=== PATIENT | male | born 1940 ===

== ENCOUNTER 2025-02-22 07:47 | Outpatient (CLI) | payer MEDICARE, SELFPAY ==
--- OUTSIDE RECORDS SUMMARY | 2025-02-22 07:51 | XMS_ITS | Clinical Summary ---
Author Organization [facility] Address [address] [place] [address] Care Team Providers Care Powder Guard Name Role Phone Ilan Duckworth MD Primary Care Provider [phone] Source Comments [facility],non-owned Affiliates and Associated Physician Practices is amultiple site organization consisting of ambulatory clinics and hospital sitesin [place], [place], [place] and [place]. This disclosure is being madepursuant to the Care Everywhere program and may not contain all information available regarding this patient. Last updated 18.[facility] [employer] Allergies Active Allergy Reactions Criticality Noted Date Comments Penicillins Rash Low 08/24/2015 Medications * Be aware that medications may not be up to date on this document. Alwaysverify current medications with the patient. losartan (COZAAR) 50 MG tablet Take 50 mg by mouth once daily Active triamterene-hydr ochlorothiazide (MAXZIDE) 75-50 MG tablet Take 1 Tab by mouth once daily Active aspirin EC (ECOTRIN) 325 MG tablet Take 325 mg by mouth once daily Active amLODIPine (NORVASC) 10 MG tablet Take 10 mg by mouth once daily Active testosterone cypionate (DEPO-TESTOTERON E) 200 MG/ML injection Inject 50 mg into muscle every 28 days Active Family History Medical History Relation Name Comments CAD (Coronary Artery Disease) Father Stroke Mother Relation Name Status Comments Father Mother Social History Tobacco Use Types Packs/Day Years Used Date Smoking Tobacco: Never Smokeless Tobacco: Never Tobacco Cessation:Counseling Given: No Alcohol Use Standard Drinks/Week Comments Yes 1.7 (1 standard drink = 0.6 oz p ure alcohol) non alcohol beverage Sex and Gender Information Value Date Recorded Sex Assigned at Not on file Legal Sex Male 12:32 PM LINOLEUM INSTALLER Gender Identity Not on file Sexual Orientation Not on file Last Filed Vital Signs Vital Sign Reading Time Taken Comments Blood Pressure 116/77 08/25/2015 10:30 AM LINOLEUM INSTALLER Pulse 81 08/25/2015 10:30 AM LINOLEUM INSTALLER Temperature 36.9 C (98.4 F) 08/25/2015 7:24 AM LINOLEUM INSTALLER Respiratory Rate 22 08/25/2015 8:38 AM LINOLEUM INSTALLER Oxygen Saturation 95% 08/25/2015 10:30 AM LINOLEUM INSTALLER Inhaled Oxygen Concentration - - Weight 95.9 kg (211 lb 6.7 oz) 08/25/2015 6:22 A M LINOLEUM INSTALLER Height 185.4 cm (6' 0.99 ) 08/24/2015 5:50 PM CS T Body Mass Index 27.9 08/24/2015 5:50 PM LINOLEUM INSTALLER Plan of Treatment Health Maintenance Due Date Last Done Comments DTAP/TDAP/TD VACCINES (1 - Tdap) 1961 PNEUMOCOCCAL VACCINE 50+ (1 of 1 - PCV) 1992 ZOSTER VACCINE (1 of 2) 1992 Respiratory Syncytial Virus (RSV) Vaccine Pt: or over 60 yrs (1 - 1-dose 75+ series) 2017 COVID-19 VACCINE ( - 2023-2 5 season) 2024 DEPRESSION SCREENING 10/20/2024 INFLUENZA VACCINE (Season Ended) 2025 HEPATITIS B VACCINE Aged Out No longe r eligible based on patient's age to complete this topic HIB VACCINE Aged Out No longer eligi ble based on patient's age to complete this topic HPV VACCINE Aged Out No longer eligi ble based on patient's age to complete this topic MENINGOCOCCAL (Group B) VACC INE SHARED DECISION-MAKING Aged Out No longer eligibl e based on patient's age to complete this topic MENINGOCOCCAL GROUPS A/C/Y/W VACCINE Aged Out No longer eligible b ased on patient's age to complete this topic Insurance MEDICARE [facility] Address: [address] [address] [place] [address] Advance Directives * Full Code (Latest Code Status on File) Date Activated Date Inactivated Comments 08/25/2015 8:45 AM 08/25/2015 4:51 PM * Full Code Date Activated Date Inactivated Comments 08/24/2015 3:18 PM 08/25/2015 8:45 AM Care Teams Powder Guard Relationship Specialty Start Date End Date Ilan Duckworth MD PCP - General Family Medicine 08/24/15
--- OUTSIDE RECORDS SUMMARY | 2025-02-22 07:52 | XMS_ITS | Clinical Summary ---
Author Organization [facility] Address [facility] [place] [address] Care Team Providers Care Technology Risk Intern Name Role Phone Ilan Duckworth MD Primary Care Provider [phone] Yadira Ramon Unavailable [phone] Allergies Active Allergy Reactions Criticality Noted Date Comments Penicillins Unknown,Rash Low 08/24/2015 Medications amlodipine 10 MG tablet Take 10 mg by mouth daily. 2 04/21/2018 Active Cholecalciferol (VITAMIN D3) 2000 units Cap Take 1 capsule by mouth daily. Active RESTASIS 0.05 % ophthalmic emulsion Place 1 drop into the right eye every 12 (twelve) hours. 0 10/17/2018 Active fish oil 1000 MG Cap capsule Take 1,000 mg by mouth 2 (two) times daily. Active magnesium oxide 250 MG tablet Take 2 tablets by mouth daily. Active Active Problems Problem Noted Date Diagnosed Date JAGDISH (obstructive sleep apnea) 10/27/2017 CKD (chronic kidney disease) stage 2, GFR 60-89 ml/min 02/20/2017 UTI (urinary tract infection) 10/29/2016 TOBIN (acute kidney injury) 10/17/2016 History of BPH 10/17/2016 Retention of urine 09/30/2016 Hypertension 09/27/2016 Kidney stone 09/27/2016 ARF (acute renal failure) 09/20/2016 Resolved Problems Problem Noted Date Diagnosed Date Resolved Date Encounter for preventive health examination 09/18/2016 06/30/2020 Family History Medical History Relation Comments Heart Disease Father Hypertension Father Diabetes Mother Stroke Mother Relation Status Comments Daughter 1 Alive Daughter 2 Alive Father (Age 87) Mother Son Alive Social History Tobacco Use Types Packs/Day Years Used Date Smoking Tobacco: Never Smokeless Tobacco: Never Alcohol Use Standard Drinks/Week Comments No 0 (1 standard drink = 0.6 oz pur e alcohol) AUDIT-C Answer Date Recorded Frequency of Alcohol Consumption Never 11/12/2018 Average Number of Drinks Not on file 019 Frequency of Binge Drinking Not on file 10/21 Sex and Gender Information Value Date Recorded Sex Assigned at Not on file Legal Sex Male 8:20 PM CDT Gender Identity Not on file Sexual Orientation Not on file Last Filed Vital Signs Vital Sign Reading Time Taken Comments Blood Pressure 126/76 08/18/2019 11:29 AM CDT Pulse 81 08/18/2019 11:29 AM CDT Temperature 36.7 C (98 F) 08/18/2019 11:29 AM CDT Respiratory Rate 18 02/15/2019 12:00 PM CDT Oxygen Saturation 96% 08/18/2019 11:29 AM CDT Inhaled Oxygen Concentration - - Weight 96.2 kg (212 lb) 08/18/2019 11:29 AM CDT Height 185.4 cm (6' 1 ) 08/18/2019 11:29 AM CDT Body Mass Index 27.97 08/18/2019 11:29 AM CDT Plan of Treatment Health Maintenance Due Date Last Done Comments DTaP, Tdap and Td Vaccines ( 1 - Tdap) 1959 Annual Medicare Wellness Visit 2007 Zoster Vaccines (2 of 3) 10/13/2014 08/18/2014 RSV Immunization or 60+ Years (1 - 1-dose 75+ series) 2017 Pneumococcal Vaccine: 50+ Ye ars (2 of 2 - PPSV23) 08/07/2019 08/07/2018 COVID-19 Vaccine ( - 2023-2 5 season) 2024 Meningococcal B Vaccine Aged Out No l onger eligible based on patient's age to complete this topic Meningococcal Vaccine Aged Out No loraine madiha eligible based on patient's age to complete this topic RSV Immunizations Under 20 Months Aged Out No longer eligible based on patient's age to complete this topic Insurance MEDICARE [facility] Advance Directives Documents on File Type Date Recorded Patient Mystery Shopper Expl anation Advance Directives and Livin g Will 09/15/2016 POWER OF FABRIC WORKER FITTER * Full Code (Latest Code Status on File) Date Activated Date Inactivated Comments 02/15/2019 10:33 AM 02/15/2019 2:19 PM Care Teams Technology Risk Intern Relationship Specialty Start Date End Date Ilan Duckworth MD [address] [place] [id number] PCP - General 11/04/16 Yadira Ramon APNP [address] [place] [address] G50 NISA PARKER [address] PCP - Med Group - MSSP Attributed Provider 07/20/17
--- OUTSIDE RECORDS SUMMARY | 2025-02-22 07:52 | XMS_ITS | Referral Summary ---
Author Organization [facility] A Address [address] [place] [address] Care Team Providers Care Vp Director Of Finance Name Role Phone Ilan Duckworth MD Primary Care Provider [phone] Everett Landis MD Unavailable [phone] Narayan Lomas MD Unavailable [phone] Allergies Active Allergy Reactions Criticality Noted Date Comments Penicillins Rash Medium 08/24/2015 Sulfa (Sulfonamide Antibiotics) Rash High 05/2024 Medications valsartan (DIOVAN) 40 mg tabletIndicatio ns:hypertension Take 1 tablet (40 mg total) by mouth 2 (two) times a day 4 Active nystatin-triamc inolone ointment 4 Active metoprolol tartrate (LOPRESSOR) 25 mg immediate release tabletIndicatio ns:hypertension Take 1 tablet (25 mg total) by mouth 2 (two) times a day 4 Active magnesium oxide (MAG-OX) 250 mg (150.8 mg elemental) tabletIndicatio ns:hypomagnesem ia Take 2 tablets (500 mg total) by mouth firestop/containment worker before breakfast Active losartan (COZAAR) 50 mg tabletIndicatio ns:hypertension Take 1 tablet (50 mg total) by mouth 2 (two) times a day Active hydroCHLOROthia zide (MICROZIDE) 12.5 mg capsuleIndicati ons:hypertensio n Take 1 capsule (12.5 mg total) by mouth firestop/containment worker before breakfast 4 Active cholecalciferol (VITAMIN D-3) 2000 unit capsuleIndicati ons:Vitamin D Deficiency Take 1 capsule (2,000 Units total) by mouth firestop/containment worker before breakfast Active amLODIPine (NORVASC) 10 mg tabletIndicatio ns:hypertension Take 1 tablet (10 mg total) by mouth firestop/containment worker before breakfast 8 Active zinc gluconate 100 mg tabletIndicatio ns:Zinc Deficiency Take 1 tablet by mouth firestop/containment worker before breakfast Active [id number]-ep a-fish oil-D3 360 mg-1,200 mg -1,000 unit capsuleIndicati ons:hypertrigly ceridemia Take 1 tablet/capsule by mouth 2 (two) times a day Active erythromycin (ILOTYCIN) ophthalmic ointment Place on incisions three times per day and in operative eye as needed. 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 01/22/2024 Impairment of balance 11/16/2023 Recurrent falls 11/16/2023 Lesion of face 09/30/2023 Disorder of lipid metabolism 09/03/2023 Abnormal finding of diagnostic imaging 3 Arthralgia of both knees 01/27/2023 Arthralgia of left knee 01/27/2023 Erectile dysfunction 08/21/2022 Peripheral venous insufficiency 01/28/2022 Pain in lower limb 01/28/2022 Phlebitis of superficial veins of lower extremit y 01/28/2022 Hyperlipidemia 01/01/2022 Overview (02/12/2024): per cardiology (kari jimenez) Edema of lower extremity 01/22/2021 Sciatica 12/10/2020 JAGDISH (obstructive sleep apnea) 10/27/2017 CKD (chronic kidney disease) stage 2, GFR 60-89 ml/min 02/20/2017 UTI (urinary tract infection) 10/29/2016 Retention of urine 09/30/2016 Kidney stone 09/27/2016 Hypertension 09/27/2016 Overview (02/12/2024): per cardiology (kari jimenez) Acute renal failure 09/20/2016 Social History Tobacco Use Types Packs/Day Years Used Date Smoking Tobacco: Never Passive Smoke Exposure: Never Smokeless Tobacco: Never Tobacco Cessation:Counseling Given: No AUDIT-C Answer Date Recorded Q1: How often do you have a drink containing alcohol? Never 01/26/2024 Q2: How many drinks containi ng alcohol do you have on a typical day when you are drinking? Patient does not drink Q3: How often do you have si x or more drinks on one occasion? Never 01/26/2024 Personal Safety Answer Date Recorded Have you ever been in or are you currently in a harmful physical or emotional relationship or is someone making you feel afraid or unsafe? 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 Gender Identity Not on file Sexual Orientation Not on file Last Filed Vital Signs Vital Sign Reading Time Taken Comments Blood Pressure 154/88 02/04/2024 12:30 PM CDT Pulse 64 02/04/2024 12:30 PM CDT Temperature 36.1 C (97 F) 02/04/2024 12:13 PM CDT Respiratory Rate 24 02/04/2024 12:30 PM CDT Oxygen Saturation 95% 02/04/2024 12:30 PM CDT Inhaled Oxygen Concentration - - Weight 95.3 kg (210 lb) 01/26/2024 11:00 AM CDT Height 185.4 cm (6' 1 ) 01/26/2024 11:00 AM CDT Body Mass Index 27.71 01/26/2024 11:00 AM CDT Plan of Treatment Not on file Insurance MEDICARE [employer] [place] [employer] [place]ARE [facility] Care Teams Vp Director Of Finance Relationship Specialty Start Date End Date Ilan Duckworth MD [address] [place] [id number] PCP - General 07/10/16 Everett Landis MD [address] [place] [address] Cardiology 01/22/24 Narayan Lomas MD [address] DEPT OPHTHALMOLOGY, [facility] [address] [place] [address] Surgeon Ophthalmology 02/04/24
--- OUTSIDE RECORDS SUMMARY | 2025-02-22 07:52 | XMS_ITS | Clinical Summary ---
Author Organization [facility] A Address [address] [facility] [address] [address] [place] [address] Care Team Providers Care Cook Dinner Name Role Phone Ilan Duckworth MD Primary Care Provider [phone] Everett Landis MD Unavailable [phone] Narayan Lomas MD Unavailable [phone] Allergies Active Allergy Reactions Criticality Noted Date [...] 2 tablets (500 mg total) by mouth engineering psychologist before breakfast Active losartan (COZAAR) 50 mg tabletIndicatio ns:hypertension Take 1 tablet (50 mg total) by mouth 2 (two) times a day Active hydroCHLOROthia zide (MICROZIDE) 12.5 mg capsuleIndicati ons:hypertensio n Take 1 capsule (12.5 mg total) by mouth engineering psychologist before breakfast 4 Active cholecalciferol (VITAMIN D-3) 2000 unit capsuleIndicati ons:Vitamin D Deficiency Take 1 capsule (2,000 Units total) by mouth engineering psychologist before breakfast Active amLODIPine (NORVASC) 10 mg tabletIndicatio ns:hypertension Take 1 tablet (10 mg total) by mouth engineering psychologist before breakfast 8 Active zinc gluconate 100 mg tabletIndicatio ns:Zinc Deficiency Take 1 tablet by mouth engineering psychologist before breakfast Active qosbo-1b-xmm-ep a-fish oil-D3 360 mg-1,200 mg -1,000 unit [...] cardiology (kari jimenez) Acute renal failure 09/20/2016 Surgical History Surgery Date Site/Laterality Comments PROSTATE SURGERY 10/20/2018 - 10/19/2019 ABLATION SAPHENOUS VEIN W/ RFA right leg/unknown date CATARACT EXTRACTION Bilateral 2020 LASIK 2020 NASAL POLYP EXCISION 10/20/2013 - 10/19/2014 PERCUTANEOUS CYSTOLITHOLAPAXY 02/15/2019 HOLMIUM LASER CYSTOLITHOLAPAXY Medical History Medical History Date Comments Hypertension Prostate disorder Sleep apnea Family History Medical History Relation Name Comments Diabetes Mother Anesthesia problems Neg Hx Glaucoma Neg Hx Macular degeneration Neg Hx Malig Hypertension Neg Hx Malig Hyperthermia Neg Hx Pseudochol deficiency Neg Hx Retinal detachment Neg Hx Thyroid disease Neg Hx Relation Name Status Comments Mother Social History Tobacco Use Types Packs/Day [...] on file 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 Gender Identity Not on file Sexual Orientation Not on file Obstetrics History Last Filed Vital Signs Vital Sign Reading [...] 01/26/2024 11:00 AM CDT Plan of Treatment Health Maintenance Due Date Last Done Comments Depression Screening 1942 Hepatitis B Screening 1960 Well Visit 65+ 2007 Zoster Vaccine (2 of 3) 05/17/2020 03/22/20 20, 11/06/2019, 08/18/2014 DTaP/Tdap/Td Vaccine (1 - Tdap) 10/06/2023 3, 12/19/2006 Covid-19 Vaccine (6 - 2023-2 5 season) 2024 08/25/2023, 08/05/2022, 09/04/2021, Additional history exists Fall Risk Assessment 02/03/2025 02/04/2024 Influenza Vaccine (Season Ended) 2025 08/13/2023, 08/13/2022, 10/05/2021, Additional history exists Pneumococcal vaccine 65+ Completed 019, 08/07/2018, 10/20/2013, Additional history exists Insurance MEDICARE [facility] MEDICARE Member Subscriber Plan / Payer ( fective 2007-) Name:Terrence Olivo Member ID:[id number] Relation to Subscriber:Self Name:Terrence Olivo Subscriber ID:[id number] Payer ID:[id number] Group ID:Not on file Type:MEDICARE TRADITIONAL Address: [place] [phone] [facility] Care Teams Cook Dinner Relationship Specialty Start Date End Date Ilan Duckworth MD [address] [place] [id number] PCP - General 07/10/16 Everett Landis MD [facility] [place] [address] Cardiology 01/22/24 Narayan Lomas MD [address] [facility] [facility], [address] [address] Surgeon Ophthalmology 02/04/24
--- NOTE | 2025-03-17 15:05 | WPDSLEEPSTUD ---
Sleep Study Date of Study: 02/22/25 Ordering Provider: Leonard MorrisonMD Interpreting Physician: Cinda Drake DO Sleep Study Type: Split Polysomnogram Height: 1.85 m Weight: 97.522 kg Body Mass Index: 28.3 Neck Circumference (inches): 17 [place]: 18 Reason for Sleep Study Daytime hypersomnia Sleep History The patient is an 84-year-old male with previously diagnosed sleep apnea with CPAP use greater than 10 years ago that had a sleep study ordered by his ENT for evaluation of sleep apnea. The patient has had worsening snoring, nocturnal gasping and daytime hypersomnia. The patient did not complete the sleep history packet. Sleep Procedure A full night polysomnogram using the [employer] multi-channel system recorded the standard physiologic parameters including EEG, EOG, submentalis EMG, anterior tibialis EMG, EKG, body position, nasal and oral airflow using nasal pressure sensor and thermistor.? Respiratory parameters of chest and abdominal movements were recorded with Respiratory Inductance Plethysmography belts. Oxygen saturation was recorded by pulse oximetry. Video monitoring was also performed. Sleep stages, periodic limb movements, and EEG arousals were scored in 30 second epochs according to the criteria of the AASM Scoring Manual. The Apnea-Hypopnea Index was calculated using CMS guidelines for definition of hypopnea with 4% O2 desaturations while scoring respiratory events. Sleep Architecture The total recording time was 436.3 minutes.? The total sleep time was 171.0 minutes. Sleep latency was 11.8 minutes. REM latency was 290.5 minutes. Sleep efficiency was 39.2%. The patient had 51 awakenings for an awakening index of 17.9. Wake after sleep onset time was 253.0 minutes. The patient spent 70.0 minutes, 40.9% of total sleep time in Stage N1. The patient spent 98.5 minutes, 57.6% in Stage N2. The patient spent 0.0 minutes, 0.0% in Stage N3. The patient spent 2.5 minutes, 1.5% in Stage REM sleep. Respiratory Analysis The patient had 12 hypopneas and 132 obstructive apneas for an overall Apnea Hypopnea Index of 50.5. The REM Apnea Hypopnea Index was 72.0. The NREM Apnea Hypopnea Index was 50.2. The patient had a Central Apnea Hypopnea Index of 0. There was no evidence of John-Mccray Respirations. Arousals There were 159 total arousals for an arousal index of 55.8. There were 68 spontaneous arousals for an index of 23.9. There were 49 arousals due to respiratory events for an index of 17.2. There were 32 arousals due to periodic limb movements for an index of 11.2.? There were 10 arousals due to isolated limb movements for an index of 3.5. Periodic Limb Movements The patient had 19 isolated limb movements with an index of 6.7. The patient had 92 periodic limb movements with an index of 32.3, which is elevated (normal < 15). Patient had a total of 111 limb movements with a total limb movement index of 38.9. Oximetry Data The patient had an average oxygen saturation of 90.7% in sleep with a minimum oxygen saturation of 75.0% and a maximum oxygen saturation of 97.0%. The patient had 135 oxygen desaturations that were 4% or greater resulting in an Oxygen Desaturation Index of 47.4.? The patient spent 28 minutes, 6.6% of total sleep time with an oxygen saturation below 88%. Snoring Profile Mild snoring was present throughout the study. Cardiac Profile The EKG showed normal sinus rhythm with trigeminy and frequent isolated PVCs.?The patient had an average pulse rate of 77.3 bpm with a minimum pulse of rate of 65.0 bpm and a maximum pulse rate of 88.0 bpm.? EEG Profile No signs of seizure activity seen. Assessment and Plan Assessment and Plan (1) JAGDISH (obstructive sleep apnea): Code(s): G47.33 - Obstructive sleep apnea (adult) (pediatric) Status: Acute Assessment and Plan: The patient had an overall AHI of 50.5 with desaturation down to 75%. This is consistent with severe sleep apnea. CPAP was not started during this study due to prolonged sleep latency and long periods of wake throughout the night. I recommend that the patient have a CPAP Titration study with the use of a hypnotic to ensure we obtain enough sleep data and find an optimal pressure setting. The patient had a significant number of limb movements during the study with the majority being periodic in nature. Approximately 1/3 of the periodic limb movements caused arousals in the patient's sleep. This can also be seen with untreated sleep apnea. I recommend that the patient have a serum ferritin drawn for evaluation of iron deficiency anemia. If the patient has a serum ferritin less than 75 ng/mL, I recommend starting a daily iron supplement and a Vitamin C supplement for better absorption. If the serum ferritin is greater than 75 ng/mL, I recommend starting a dopamine agonist and titrating the dose until symptoms resolve. There are nonpharmacological methods to treat limb movements including daily exercise, stretching calf muscles before bed, avoiding excessive amounts of caffeine and alcohol, vitamin B supplementation, magnesium lotion massaged into legs before bed, and use of a weighted blanket. Data The data obtained during this sleep study is adequate for interpretation. Certification This sleep study has been reviewed by a board certified sleep medicine physician.
[2025-03-17 15:06] VITALS: BMI 28.3
== END 2025-02-23 06:30 | disposition home or self-care (01) ==
LOC: ANHCSM 07:48
PROVIDERS: Visit Provider Otolaryngology
DX: G47.33 Obstructive sleep apnea (adult) (pediatric) (principal)
CPT/HCPCS: 95810